=== PATIENT | male | born 1965 | race Caucasian/White ===

== ENCOUNTER 2020-06-14 10:50 | Outpatient (CLI) | payer OTHER ==
[2020-06-15 02:57] LABS: SARS-CoV-2 MS2 Positive; SARS-CoV-2 N Gene Negative; SARS-CoV-2 S Gene Negative; SARS-CoV-2 by NAA Not Detected (NotDetected); SARS-CoV-2 orf1ab Negative
== END 2020-06-14 10:51 | disposition home or self-care (01) ==
LOC: LABBT 10:50
PROVIDERS: ATTEND Neurological Surgery
DX: Z01.812 Encounter for preprocedural laboratory examination (principal); Z20.822 Contact with and (suspected) exposure to COVID-19; M54.12 Radiculopathy, cervical region; M54.16 Radiculopathy, lumbar region
CPT/HCPCS: 87635; U0003; U0005

== ENCOUNTER 2020-06-18 10:02 | Day surgery (SDC) | payer OTHER ==
[2020-06-14 14:53] VITALS: BMI 38.3
[~2020-06-18 10:02] MED LIST: Lidocaine 1% PF 5 ML VIAL ONE; Ondansetron PF 4 MG/2 ML Vial ONE; PROPOFOL 200 MG/20 ML VIAL ONE
[2020-06-18] MEDS ORDERED: Famotidine/PF 20 mg/2ml Vial ONE (10:31)
[2020-06-18] MEDS ORDERED: Fentanyl 100 MCG/2 ML VIAL ONE ×2 (11:35→13:13)
[2020-06-18] MEDS ORDERED: PROPOFOL 20 ML ONE (11:35)
--- NOTE | 2020-06-18 12:36 | MRI ---
MRI of thecervical spine: 06/18/2020 COMPARISON:None available HISTORY:Neck pain with bilateral upper extremity radiculopathy TECHNIQUE: Multiplanar multisequence MR imaging of thecervical spine without contrast Findings:Sagittal STIR imaging demonstrates no focal area of osseous marrow edema. Incidental note is made of incompletely imaged lobulated areas of increased T1 and T2 signal within the posterior nasal cavity/nasopharynx. There is moderate degenerative change at the atlantoaxial interspace. No prevertebral soft tissue swelling. Cervical vertebral body height and alignment within normal limits. C2-3: No significant central canal or neural foraminal stenosis. C3-4: Mild disc bulge and mild bilateral facet hypertrophy with no significant central canal or neura l foraminal stenosis. C4-5: Mild disc bulge with partial effacement of the ventral thecal sac. No significant central canal or neural foraminal stenosis. Bilateral mild facet and uncovertebral osteophyte formation. C5-6: Mild disc bulge with partial effacement of the ventral thecal sac. No significant associated ce ntral canal or neural foraminal stenosis. C6-7: No significant central canal or neural foraminal stenosis C7-T1: Mild bilateral facet hypertrophy, right greater than left. Mild bilateral neural foraminal lucio nosis. No significant central canal stenosis. Detailed assessment is slightly limited secondary to persistent motion artifact. No focal abnormal si gnal intensity within the cervical cord. IMPRESSION:Mild cervical spine degenerative change as above.
[2020-06-18] MEDS ORDERED: Labetalol HCl 100 MG/20 ML VIAL ONE (13:05)
--- NOTE | 2020-06-18 13:24 | MRI ---
MR the lumbar spine without contrast INDICATION: Low back pain with history of low back surgery COMPARISON: None. TECHNIQUE: Multiplanar multisequence MR images were obtained of lumbar spine without IV contrast. FINDINGS: Motion artifact slightly limits image detail. Bone marrow: There is postsurgical change of a right L5-S1 and left L4-5 hemilaminectomy. No addition al bone marrow signal abnormality is evident. Distal spinal cord and conus: Normal. The conus seen to terminate at L1-L2. Visualized retroperitoneum and paraspinal soft tissues: Normal. Vertebral levels: L5-S1: There is a mild broad-based disc osteophyte complex causing mild narrowing of the neural estephania trevor at L5-S1.. L4-5: There is a broad-based disc osteophyte complex with loss of disc space height and facet joint d egenerative change inducing severe bilateral neural foraminal narrowing. L3-4: There is a broad-based bulge with facet hypertrophy inducing mild central canal narrowing and m oderate bilateral neural foraminal narrowing L2-3: There is a broad-based bulge with facet hypertrophy inducing mild bilateral neural foraminal na rrowing L1-L2: There is a broad-based disc bulge inducing mild central canal narrowing mild bilateral neural foraminal narrowing. T12-L1: No appreciable central canal or neuroforaminal narrowing. IMPRESSION: 1. Postoperative lumbar spine. 2. Severe bilateral neural foraminal narrowing at L4-5. 3. Mild central canal narrowing and moderate bilateral neural foraminal narrowing at L3-4. 4. Mild bilateral neural foraminal narrowing at L2-3 and L1-2.
== END 2020-06-18 14:40 | disposition home or self-care (01) ==
LOC: MRI 10:02
PROVIDERS: ATTEND Neurological Surgery
DX: M54.12 Radiculopathy, cervical region (principal); M54.16 Radiculopathy, lumbar region; M48.02 Spinal stenosis, cervical region; M48.061 Spinal stenosis, lumbar region without neurogenic claudication; Z79.82 Long term (current) use of aspirin; Z79.899 Other long term (current) drug therapy
CPT/HCPCS: 72141; 72148; J2405; J2704; J3010; S0028